=== PATIENT | female | born 1960 | race Caucasian/White ===

== ENCOUNTER 2017-06-10 21:14 | Emergency (ER) | payer OTHER ==
[2017-06-10] MEDS ORDERED: ONDANSETRON 4 MG/2 ML VIAL ONE (21:26)
[2017-06-10] MEDS ORDERED: ONDANSETRON 4 MG/2 ML VIAL IVP ONE (21:32)
[2017-06-10] MEDS ORDERED: NS 1,000 ML IV ONE ×2 (21:34→22:06)
[2017-06-10 22:03] LABS: PLATELET COUNT 214 10^3/uL (150-400)
[2017-06-10] MEDS ORDERED: LORazepam 2 MG/ML INJ IVP ONE (22:22)
--- NOTE | 2017-06-11 00:19 | EDPHY ---
H & P Smoking Status: Never smoked Time Seen by Provider: 06/10/17 21:20 HPI/ROS: CHIEF COMPLAINT: Marijuana ingestion, vomiting HISTORY OF PRESENT ILLNESS: 56-year-old female presents to the emergency department by ambulance after she started vomiting after marijuana ingestion. The patient admits to using edible marijuana around 630 this evening. She did not feel much affect from this and then took another dose of this around 7:30 p.m., 1 hr later. Within about 20 or 30 min she began feeling dizzy and nauseous and started vomiting. No chest pain or difficulty breathing. She has never used at a bowl marijuana in the past. She has not smoked marijuana in over 30 years. She is visiting from [place]. No history of syncope or near syncopal episodes. No reported trauma. Currently she still feels nauseous. She feels dizzy. She denies any other substance abuse. REVIEW OF SYSTEMS: Constitutional: No fever, no chills. Eyes: No double or blurry vision. ENT: No sore throat. Respiratory: No cough, no shortness of breath. Cardiac: No chest pain. Gastrointestinal: Vomiting. No abdominal pain or diarrhea. Genitourinary: No dysuria. Musculoskeletal: No neck or back pain. Skin: No rashes. Neurological: No headache. (SuzeMaya walters) Past Medical/Surgical History: Negative (SuzeMaya walters) Social History: , visiting from [place] (Bianca Wrightnancy Schumacher) Physical Exam: General Appearance: Alert, no distress. Mentating normally and answering questions appropriately. Eyes: Pupils equal and round. Extraocular motions are all intact. ENT: Mouth: Mucous membranes moist. Respiratory: No wheezing, rhonchi, or rales, lungs are clear to auscultation. Cardiovascular: Regular rate and rhythm. Gastrointestinal: Abdomen is soft and nontender, no masses, no rebound or guarding, bowel sounds normal. Neurological: Alert and oriented x 3, cranial nerves II through XII grossly intact Skin: Warm and dry, no rashes. Musculoskeletal: Nontender to palpate along the cervical, thoracic or lumbar spine. Neck is supple. Extremities: Full range of motion and no peripheral edema. Psychiatric: Patient is oriented X 3, there is no agitation. (AdrianaMaya) Constitutional: Initial Vital Signs Temperature (C) 36.6 C 06/10/17 21:41 Heart Rate 102 H 06/10/17 21:41 Respiratory Rate 18 06/10/17 21:41 Blood Pressure 146/87 H 06/10/17 21:41 O2 Sat (%) 92 06/10/17 21:41 O2 Delivery Mode Room Air O2 (L/minute) 2 Allergies/Adverse Reactions: No Known Allergies Allergy (Unverified 06/10/17 21:33) Home Medications: Medication Instructions Recorded NK [No Known Home Meds] 06/10/17 Medical Decision Making ED Course/Re-evaluation: 56-year-old female presents to the emergency department feeling nauseous and was vomiting after using edible marijuana. The patient was given 4 mg of Zofran IV. She was also given 0.5 mg of IV Ativan as well as IV normal saline. She was feeling better. Patient was monitored for several hours in the emergency department. At 12:15 a.m., the patient was able to ambulate. She was able to drink some water. She felt comfortable being discharged with her sister. Patient was instructed to return if she developed recurring vomiting, if she developed any pain in her chest or difficulty breathing, or any other concerns. (Maya Wright) I did not see this patient while she was in the emergency department. However her care was discussed with the PA while the patient was in the department. I agree with treatment plan and management (Remington Louis) Differential Diagnosis: Including but not limited to marijuana ingestion, electrolyte abnormality, gastritis, substance abuse (Maya Wright) - Data Points Laboratory Results: Laboratory Results 06/10/17 21:30 06/10/17 21:30 Medications Given: Discontinued Medications Sodium Chloride (Ns) 1,000 mls @ 0 mls/hr IV EDNOW ONE; Wide Open PRN Reason: Protocol Stop: 06/10/17 21:35 Last Admin: 06/10/17 21:35 Dose: 1,000 mls Sodium Chloride (Ns) 1,000 mls @ 0 mls/hr IV ONCE ONE PRN Reason: Wide Open Stop: 06/10/17 22:07 Last Admin: 06/10/17 22:10 Dose: 1,000 mls Lorazepam (Ativan Injection) 0.5 mg IVP EDNOW ONE Stop: 06/10/17 22:23 Last Admin: 06/10/17 22:32 Dose: 0.5 mg Ondansetron HCl (Zofran) 4 mg IVP EDNOW ONE Stop: 06/10/17 21:33 Last Admin: 06/10/17 21:34 Dose: 4 mg Departure - Departure Disposition: Home, Routine, Self-Care Clinical Impression: Marijuana ingestion Condition: Good Instructions: Acute Nausea and Vomiting (ED) Additional Instructions: Clear liquids and slowly advance diet as tolerated. Return to the emergency department if you develop recurring vomiting, if he developed headache, pain in her chest, difficulty breathing, or if you feel worse in any way. Referrals: Georgie Gant, [Doctor of Osteopathy] - 1 day, if not improved (Primary care provider reconcilement clerk)
[2017-06-11 00:26] VITALS: BP 114/96
== END 2017-06-11 01:46 | disposition home or self-care (01) ==
DX: T40.7X1A Poisoning by cannabis (derivatives), accidental (unintentional), initial encounter (principal); E86.9 Volume depletion, unspecified
CPT/HCPCS: 96374; J2060; J2405